=== PATIENT | female | born 1990 | race Caucasian/White ===

== ENCOUNTER → 2016-11-07 | Outpatient (CLI) | payer BC ==
[~2016-11-07] MED LIST: BCP TD; BIRTH CONTROL PILLS; CEFTIN500 MG PO; METRONIDAZOLE500 MG PO; MONISTAT; NORCO 325 MG-51 TAB PO; TRIVORA-281 TAB PO; [UNRECOGNIZED DRUG - OTHER]
== END ==
LOC: COL.RAD 09:46
DX: M25.552 Pain in left hip (principal)
CPT/HCPCS: A9585; J3301; Q9967

== ENCOUNTER 2019-05-05 23:59 | Inpatient (IN) | payer BC ==
[~2019-05-05] VITALS: Ht 157.5 cm; Wt 85.0 kg
[2019-05-06] VITALS (45 sets, daily range): BP systolic 93–1323; BP diastolic 43–90; PULSE 54–90; TEMP 97.6–98.1
[2019-05-06] MEDS ORDERED: PRENATAL MVI (00:31)
--- NOTE | 2019-05-06 00:42 | NUR ---
SROM 1530 CLEAR YESTERDAY- WAITED FOR CONTRACTIONS. NOQ Q 1-4 MIN MILD. CX /-3
[2019-05-06 01:39] LABS: BASO % 0.2 % (0.0-2.0); EOS # 0.1 (0.0-0.7); EOS % 0.6 % (0-4.0); GRAN # 9.8 (1.4-6.5); GRAN % 74.2 % (42.2-75.2); HEMOGLOBIN 12.7 g/dl (12.5-16.0); LYMPH # 2.2 (1.2-3.4); LYMPH % 16.9 % (20.0-51.0); MEAN CELL VOLUME 83 fl (80.0-100.0); MEAN CORPUSCULAR HEMOGLOBIN 29 pg (27.0-31.0); MEAN CORPUSCULAR HGB CONC 35 g/dl (33.0-37.0); MEAN PLATELET VOLUME 9.9 fl (7.4-10.4); MONO % 7.6 % (1.7-9.3); PLATELET COUNT 188 K/mm3 (130-400)
[2019-05-06 01:42] LABS: HEMATOCRIT 36.3 % (37.0-47.0)
--- NOTE | 2019-05-06 01:45 | NUR ---
PIT STARTED 2MU/MIN
--- NOTE | 2019-05-06 04:03 | NUR ---
BECOMING UNCOMFORTABLE IN LOWER ABDOMEN. QUESTIONS REGARDING EPIDURAL ANSWERED. MOTHER HERE NOW
--- NOTE | 2019-05-06 04:30 | NUR ---
REQUESTS EPIDRUAL - SVE /-2 . Conner SOW NOTIFIED. PIT TO U DUE TO FREQUESNCY
--- NOTE | 2019-05-06 06:30 | NUR ---
Report received, care assumed. Patient resting in bed, comfortable with epidural. Plan of care reviewed.
--- NOTE | 2019-05-06 07:30 | NUR ---
Pitocin started at 2mu per orders and protocol.
--- NOTE | 2019-05-06 08:20 | NUR ---
Intermittent late heart rate decelerations noted, Dr. Syed on unit, reviews FHR tracing, no change in orders at this time.
--- NOTE | 2019-05-06 09:10 | NUR ---
0858 FHR deceleration down to 90 bpm over 10 minutes. During this time this nurse performs SVE, no change from /-2 earlier, patient turned to high right side and then to knee chest. IVF bolus started, pitocin turned off, and O2 applied at 10L per mask. Dr. Syed called and on his way to the hospital. Orders to prep the patient for primary recieved at 0906. Patient prepped and taken to OR at 0910.
[2019-05-07 01:35] VITALS: BP 118/71; PULSE 88; TEMP 98.4
[2019-05-07 09:00] VITALS: BP 112/58; PULSE 80; TEMP 97.5
--- NOTE | 2019-05-07 11:25 | NUR ---
Initial visit; Parent thanked Intensive Care Anaesthetist for offering congratulations and God's blessings for the of her daughter. Intensive Care Anaesthetist thanked family for choosing [place].
[2019-05-07 16:28] VITALS: BP 122/68; PULSE 85; TEMP 98.1
[2019-05-07 21:30] VITALS: BP 126/71; PULSE 72; TEMP 97.8
[2019-05-08] MEDS ORDERED: PERCOCET 325 MG1 TA2 PO (07:34)
[2019-05-08] MEDS ORDERED: MOTRIN 800800 MG/TAB PO (07:34)
[2019-05-08 08:00] VITALS: BP 126/72; PULSE 84; TEMP 98
== END 2019-05-08 12:15 | disposition home or self-care (01) | DRG 788 ==
LOC: LDRO 23:59 → LDR 05-06 00:59 → OB 05-06 10:45
PROVIDERS: ADMIT Obstetrics & Gynecology
PROC: 10D00Z1 Extraction of Products of Conception, Low, Open Approach (ICD-10-PCS; principal; 2019-05-06)
DX: O76 Abnormality in fetal heart rate and rhythm complicating labor and delivery (principal); O69.81X0 Labor and delivery complicated by cord around neck, without compression, not applicable or unspecified; Z3A.39 39 weeks gestation of pregnancy; Z37.0 Single live birth; O42.92 Full-term premature rupture of membranes, unspecified as to length of time between rupture and onset of labor
CPT/HCPCS: J0171; J0690; J1885; J2400; J2405; J2590; J2791; J2795; J7120

== ENCOUNTER → 2021-08-25 | Outpatient (CLI) | payer BC ==
[~2021-08-25] MED LIST changes: +MOTRIN 800800 MG/TAB PO; +PERCOCET 325 MG1 TA2 PO; +PRENATAL MVI
== END ==
LOC: COL.LAB 11:51
DX: G43.909 Migraine, unspecified, not intractable, without status migrainosus (principal)